=== PATIENT | female | born 1990 | race Caucasian/White ===

== ENCOUNTER 2024-01-01 10:38 | Inpatient (IN) ==
[2024-01-01] MEDS ORDERED: Lidocaine 1% VIAL 10 MG/ML 30 ML VIAL INJ PRN (12:13)
[2024-01-01 12:39] LABS: Urine Benzodiazepine Screen None Detected (None Detect); Urine Cannabinoids Screen None Detected (None Detect); Urine Opiates Screen None Detected (None Detect)
[2024-01-01] MEDS: Buffered Lidocaine 1% SYRIN 1 ml INTRADERM ONE ×2 (13:33→14:09)
[2024-01-01] MEDS: Oxytocin in LR 20,000 MILLI.UNIT/1,000 ML BAG IV SCH ×2 (13:35→22:59)
[2024-01-01] MEDS: Lactated Ringers 1000 ml BAG 1,000 ML IV ONE ×2 (13:35→22:58)
[2024-01-01 13:53] LABS: ABS Lymphocytes 1.6 10^3/uL (1.0-4.8); ABS Monocytes 0.5 10^3/uL (0.0-0.9); ABS Neutrophils 7.1 10^3/uL (1.5-7.6); ABS Nucleated RBC 0.01 10^3/ul; Eosinophil % 0.3 %; Hematocrit 38.1 % (35-45); Hemoglobin 13.4 g/dL (11.5-14.3); Lymphocyte % 17.7 %; Mean Corpuscular Hgb Conc 35.2 g/dL (31-36); Mean Corpuscular Volume 93.8 fL (80-97); Mean Platelet Volume 9.3 fL (7.5-11.2); Nucleated Red Blood Cells % 0.1 %/100WBC (0.0-0.8); Platelet Count 170 10^3/uL (150-450); Red Blood Count 4.06 10^6/uL (3.63-4.92); Red Cell Distribution Width 13.4 % (12-17); White Blood Count 9.3 10^3/uL (3.8-11.8)
[2024-01-01] MEDS: Lactated Ringers 1000 ml BAG 1,000 ML IV SCH ×2 (16:54→22:58)
[2024-01-01] MEDS: OBEPIDURAL (200 ML) 200 ML EPIDURAL ONE (16:55)
[2024-01-01] MEDS ORDERED: Phenylephrine 40 mcg/mL 10mL (400mcg) SYRINGE IV PUSH PRN ×2 (18:08)
[2024-01-01] MEDS ORDERED: Sodium Citrate/Citric Acid LIQ 15 ML UDC PO PRN (18:08)
[2024-01-01] MEDS ORDERED: Lactated Ringers 1000 ml BAG 500 ML IV PRN ×2 (18:08)
[2024-01-01] MEDS: Lidocaine 1.5% EPI 1:200,000 30 ML SDV ONE (18:18)
[2024-01-01] MEDS ORDERED: Glycerin ADULT 2.4 gm SUPP PR PRN (20:55)
[2024-01-01] MEDS ORDERED: Lactated Ringers 1000 ml BAG 1,000 ML IV SCH (21:00)
[2024-01-01] MEDS: Witch Hazel PAD JAR TOPICAL PRN (21:26)
[2024-01-01] MEDS: Dibucaine 1% OINT 28.35 GM TUBE PR PRN (21:26)
[2024-01-01] MEDS: OBEPIDURAL (200 ML) 200 ML EPIDURAL SCH (22:59)
[2024-01-02 06:35] LABS: ABS Basophils 0.1 10^3/uL (0.0-0.1); ABS Lymphocytes 1.5 10^3/uL (1.0-4.8); ABS Monocytes 0.6 10^3/uL (0.0-0.9); ABS Neutrophils 8.1 10^3/uL (1.5-7.6); ABS Nucleated RBC 0.01 10^3/ul; Eosinophil % 0.3 %; Hematocrit 36.9 % (35-45); Hemoglobin 12.9 g/dL (11.5-14.3); Lymphocyte % 14.7 %; Mean Corpuscular Hemoglobin 32.8 pg (27-33); Mean Corpuscular Hgb Conc 34.9 g/dL (31-36); Mean Corpuscular Volume 94.1 fL (80-97); Mean Platelet Volume 8.9 fL (7.5-11.2); Nucleated Red Blood Cells % 0.1 %/100WBC (0.0-0.8); Platelet Count 147 10^3/uL (150-450); Red Blood Count 3.93 10^6/uL (3.63-4.92); Red Cell Distribution Width 13.7 % (12-17); White Blood Count 10.4 10^3/uL (3.8-11.8)
[2024-01-02 19:17] LABS: Urine Appearance Clear; Urine Bilirubin Negative (Negative); Urine Blood 3+ (Negative); Urine Color Light-Yellow; Urine Glucose Negative (Negative); Urine Ketones 1+ (Negative); Urine Nitrite Negative (Negative); Urine Protein Negative (Negative); Urine Specific Gravity 1.013 (1.002-1.030); Urine Urobilinogen Negative (Negative)
[2024-01-02 19:40] LABS: Urine Bacteria Absent /HPF (Absent); Urine Red Blood Cell 3+(>10/hpf) /HPF (0-Trace); Urine Squamous Epithelial Cell Present /HPF (Absent); Urine White Blood Cell Absent /HPF (0-Trace)
[2024-01-02 19:57] VITALS: BP 119/65
== END 2024-01-03 14:00 | disposition home or self-care (01) | DRG 560 ==
LOC: MCHOBOUT 10:38 → MCHOB 12:00
PROVIDERS: ADMIT Midwife; ATTEND Midwife